=== PATIENT | male | born 1965 | race Caucasian/White ===

== ENCOUNTER 2019-02-13 10:48 | Outpatient (CLI) | payer BC ==
[2019-02-13 12:24] LABS: #Basophils 0.1 thou/uL (0.0-0.2); #Eosinphils 0.1 thou/uL (0.0-0.7); #Lymphocytes 1.9 thou/uL (1.20-3.40); #Monocytes 0.5 thou/uL (0.11-0.59); %Basophils 1.1 % (0.0-1.0); %Eosinophils 1.7 % (0.0-10.0); %Lymphocytes 25.6 % (21.0-51.0); %Monocytes 5.9 % (0.0-10.0); %Neutrophils 65.7 % (42.0-75.0); Mean Corpuscular HGB CONC 35.2 g/dL (32.0-36.0); Mean Corpuscular Hemoglobin 32.5 pg (27.0-31.0); Mean Corpuscular Volume 92.3 fL (78.0-98.0); Mean Platelet Volume 6.3 fL (7.4-10.4); Platelet Count 202 thou/uL (130-400); RBC Distribution Width 11.8 % (11.5-14.5); Red Blood Cell (RBC) Count 4.92 mill/uL (4.70-6.10); White Blood Cell (WBC) Count 7.5 thou/uL (4.8-10.8)
[2019-02-13 12:44] LABS: Anion Gap 12 mmol/L (10-20); BUN (Urea Nitrogen) 17 mg/dL (8.4-25.7); Calc. Creatinine Clearance 0 mL/min (70-130); Calcium 9.9 mg/dL (7.8-10.44); Carbon Dioxide 27 mmol/L (22-29); Chloride 103 mmol/L (98-107); Estimated GFR-MDRD 88; Glucose 95 mg/dL (70-105); Sodium 138 mmol/L (136-145)
--- NOTE | 2019-02-14 11:00 | EKG ---
Test Reason : Blood Pressure : / mmHG Vent. Rate : 074 BPM Atrial Rate : 074 BPM P-R Int : 164 ms QRS Dur : 100 ms QT Int : 408 ms P-R-T Axes : 061 020 032 degrees QTc Int : 452 ms Normal sinus rhythm possible misplacement leads V2 and V3 No previous ECGs available Confirmed by DR. Xavier ESCOBEDO ([id number]) on 02/14/2019 11:00:17 AM Referred By: ARLEY Confirmed By:DR. Xavier ESCOBEDO
== END 2019-02-13 10:49 | disposition home or self-care (01) ==
LOC: LABBT 10:48
PROVIDERS: ATTEND Specialist
DX: Z01.818 Encounter for other preprocedural examination (principal); K40.90 Unilateral inguinal hernia, without obstruction or gangrene, not specified as recurrent
CPT/HCPCS: 80048; 85025; 93005; 93010

== ENCOUNTER 2019-02-17 12:00 | Day surgery (SDC) | payer BC ==
[2019-02-13 11:33] VITALS: BMI 32.1
[2019-02-17] MEDS ORDERED: Ketorolac Tromethamine 30 MG/ML VIAL ONE (12:29)
[2019-02-17] MEDS ORDERED: Sodium Chloride 0.9% 20 ML ONE (12:30)
[2019-02-17] MEDS ORDERED: Bupivacaine/Epinephrine 0.25% 30 ML VIAL ONE (13:19)
[2019-02-17] MEDS ORDERED: PROPOFOL 200 MG/20 ML VIAL ONE (13:26)
[2019-02-17] MEDS ORDERED: Ondansetron PF 4 MG/2 ML Vial ONE (13:26)
[2019-02-17] MEDS ORDERED: Succinylcholine Chloride 20 MG/ML 10 ml SYRINGE FS ONE (13:26)
[2019-02-17] MEDS ORDERED: Dexamethasone 20 MG/5 ML VIAL ONE (13:26)
[2019-02-17] MEDS ORDERED: Lidocaine 1% PF 5 ML VIAL ONE (13:26)
[2019-02-17] MEDS ORDERED: Glycopyrrolate 0.2 MG/ML 5 ML SYRINGE ONE (13:26)
[2019-02-17] MEDS ORDERED: Rocuronium Bromide 10 MG/ML (10ML VIAL) ONE (13:26)
[2019-02-17] MEDS ORDERED: Fentanyl 100 MCG/2 ML VIAL ONE (15:34)
--- NOTE | 2019-02-18 10:56 | OP ---
DATE OF PROCEDURE: 02/17/2019 PREOPERATIVE DIAGNOSIS: Left inguinal hernia. POSTOPERATIVE DIAGNOSIS: Left inguinal hernia, direct (pantaloon). OPERATION PERFORMED: Robotic-assisted left inguinal hernia repair using 3DMax mesh patch. ANESTHESIA: General endotracheal. INDICATIONS: The patient is a 54-year-old white male. He presents with obvious left inguinal hernia. He was taken to the operative room at this time for repair. DESCRIPTION OF OPERATION: Informed consent was obtained. The patient was taken to the operating room, where general endotracheal anesthesia was obtained with the patient in supine position. Singh catheter was placed. Abdomen was prepped with ChloraPrep and draped in sterile fashion. Local anesthetic was infiltrated using 0.25% Marcaine with epinephrine. A 12-mm supraumbilical incision was created, through which a Veress needle was passed into the peritoneal cavity and pneumoperitoneum was established using carbon dioxide up to a pressure of 15 mmHg. A 12-mm trocar port was passed through the same incision and a robotic camera was passed through this port. Under direct vision, 2 additional ports were placed using 8-mm robotic ports at the supraumbilical level on either side of midline. The robot was docked to the 3 ports and to the camera, and the operation was continued from the robotic console. The pelvis was explored. There was an easily visible left inguinal hernia. There was no evidence of right inguinal hernia. A transverse peritoneal incision was created several centimeters superior to the visible hernia. Dissection was carried through the peritoneum into the preperitoneal space. Preperitoneal dissection was carried inferiorly, down to the pubic tubercle medially and the iliopubic tract was dissected laterally. The hernia sac was dissected out of the direct space. There was a hernia defect noted on the lateral aspect of the epigastric vessels as well, thus creating a pantaloon hernia. This defect, however, was medial to the cord structures. The peritoneum was dissected off the cord structures and the vas deferens, given a wide dissection both medially and laterally. A large 3DMax mesh patch was obtained and placed in the preperitoneal space, where it was situated nicely to cover the defect. It was secured with 3 sutures of 3-0 Vicryl to the pubic tubercle medially and to the anterior abdominal wall in 2 locations, one medial to the epigastric vessels and one lateral to the epigastric vessels. The peritoneum was then closed with a running suture of 3-0 Stratafix. The fascia at the 12-mm port site was closed with 0 Vicryl suture using a GraNee needle. All ports and instruments were removed under direct vision. Pneumoperitoneum was carefully evacuated. A 0.25% Marcaine with epinephrine was infiltrated at each port site, and skin edges were approximated with 4-0 Monocryl subcuticular suture. Dermabond was placed externally. There were no complications. The patient tolerated the procedure well and was taken to recovery room in stable condition. Job ID: [id number]
== END 2019-02-17 19:48 | disposition home or self-care (01) ==
LOC: SDC 12:00
PROVIDERS: ATTEND Specialist
PROC: 0YU64JZ Supplement Left Inguinal Region with Synthetic Substitute, Percutaneous Endoscopic Approach (ICD-10-PCS; principal; 2019-02-17)
DX: K40.90 Unilateral inguinal hernia, without obstruction or gangrene, not specified as recurrent (principal); Z79.1 Long term (current) use of non-steroidal anti-inflammatories (NSAID); Z79.899 Other long term (current) drug therapy
CPT/HCPCS: C1781; J0131; J0690; J1100; J1885; J2001; J2405; J2704; J3010

== ENCOUNTER 2022-12-25 07:30 | Day surgery (SDC) | payer BC ==
[2022-12-24 14:27] VITALS: BMI 28.0
[~2022-12-25 07:30] MED LIST: EPINEPHrine 0.3 MG in Ophthalmic Irrigation Solution 500 ML IRR SCH; FENTANYL 50 MCG/ML 1 ML VIAL ONE; Midazolam HCl 2 mg/2 ml Vial ONE; PROPOFOL 20 ML ONE
[2022-12-25] MEDS ORDERED: Phenylephrine 2.5% Ophth Soln 5 ML BOT ONE (08:23)
[2022-12-25] MEDS ORDERED: Cyclopentolate 1% Opth Drop 2 ML BOT ONE (08:23)
[2022-12-25] MEDS ORDERED: Triamcinolone 40 MG/ML VIAL ONE (09:43)
[2022-12-25] MEDS ORDERED: Lidocaine 4% PF 5 ML AMP ONE (09:43)
[2022-12-25] MEDS ORDERED: CEFAZOLIN 1 GM VIAL ONE (09:43)
[2022-12-25] MEDS ORDERED: Maxitrol 0.1% Opth Oint 3.5 GM TUBE ONE (09:43)
[2022-12-25] MEDS ORDERED: Bupivacaine 0.75% 10 ML VIAL ONE (09:43)
[2022-12-25] MEDS ORDERED: Lidocaine 1% PF 5 ML VIAL ONE (09:43)
[2022-12-25] MEDS ORDERED: FENTANYL 50 MCG/ML 1 ML VIAL ONE (10:21)
== END 2022-12-25 11:15 | disposition home or self-care (01) ==
LOC: SDC 07:30
PROVIDERS: ATTEND Ophthalmology Retina Specialist
PROC: 08QE3ZZ Repair Right Retina, Percutaneous Approach (ICD-10-PCS; principal; 2022-12-25)
PROC: 08T43ZZ Resection of Right Vitreous, Percutaneous Approach (ICD-10-PCS; principal; 2022-12-25)
DX: H33.021 Retinal detachment with multiple breaks, right eye (principal); Z79.623 Long term (current) use of mammalian target of rapamycin (mTOR) inhibitor; Z79.899 Other long term (current) drug therapy
CPT/HCPCS: 67025; J0171; J0690; J2250; J2704; J3010; J3301; J3490